=== PATIENT | female | born 1990 | race Asian ===

== ENCOUNTER 2020-08-10 08:00 | Outpatient (CLI) | payer OTHER ==
[2020-08-10 21:02] LABS: CANDIDA GROUP DNA NEGATIVE (NEGATIVE); CANDIDA KRUSEI DNA NEGATIVE (NEGATIVE); TRICHOMONAS VAGINALIS DNA NEGATIVE (NEGATIVE)
== END 2020-08-10 23:59 | disposition home or self-care (01) ==
LOC: LAB.R 08:00
PROVIDERS: ATTEND Advanced Practice Midwife
DX: N76.0 Acute vaginitis (principal)
CPT/HCPCS: 87661; 87801

== ENCOUNTER 2020-09-14 08:11 | Outpatient (CLI) | payer OTHER ==
[2020-09-14 08:24] VITALS: BP 125/78
--- NOTE | 2020-09-14 16:39 | PROCEDURE REPORT ---
- HPI Diagnosis/Indication for NST: Gestational Diabetes Current EDU 10/17/20 Gestation 35 Weeks and 2 Days 1 Para 0 Vital Signs Temperature 36.7 C 09/14/20 08:22 Heart Rate 91 09/14/20 08:22 Respiratory Rate 16 09/14/20 08:22 Blood Pressure 125/78 09/14/20 08:22 O2 Saturation 100 09/14/20 08:22 Temperature 36.7 C 09/14/20 08:22 Heart Rate 91 09/14/20 08:22 Respiratory Rate 16 09/14/20 08:22 Blood Pressure 125/78 09/14/20 08:22 O2 Saturation 100 09/14/20 08:22 - NST Procedure NST Procedure Start Date 09/14/20 Start Time 08:20 Stop Time 08:50 Vibroacoustic Stimulation Used No Patient States Movement Yes - Results and Plan Findings/Impression: Beverley presents today for scheduled NST r/t complicated by GDM She is a 30yo at 35.2 wks gestation NST perform date: 09/14/2020 NST read date: 09/14/2020 FHR 125 baseline, moderate variability, accels, no decels Interpretation: Reactive Plan: Continue with routine care Continue with scheduled NSTs Final Diagnosis: complicated by GDM
== END 2020-09-14 08:50 | disposition home or self-care (01) ==
LOC: WFO 08:11 → FBP 08:14 → WFO 08:50
PROVIDERS: ATTEND Advanced Practice Midwife
DX: O24.419 Gestational diabetes mellitus in pregnancy, unspecified control (principal); Z3A.35 35 weeks gestation of pregnancy
CPT/HCPCS: 59025

== ENCOUNTER 2020-09-17 07:03 | Outpatient (CLI) | payer OTHER ==
[2020-09-17 08:31] VITALS: BP 120/75
--- NOTE | 2020-09-17 09:39 | PROCEDURE REPORT ---
- HPI Diagnosis/Indication for NST: Gestational Diabetes Current EDU 10/17/20 Gestation 35 Weeks and 5 Days 1 Para 0 Vital Signs Temperature 36.5 C 09/17/20 08:30 Heart Rate 76 09/17/20 08:30 Respiratory Rate 16 09/17/20 08:30 Blood Pressure 120/75 09/17/20 08:30 O2 Saturation 100 09/17/20 08:30 Temperature 36.5 C 09/17/20 08:30 Heart Rate 76 09/17/20 08:30 Respiratory Rate 16 09/17/20 08:30 Blood Pressure 120/75 09/17/20 08:30 O2 Saturation 100 09/17/20 08:30 - NST Procedure NST Procedure Start Date 09/17/20 Start Time 08:06 Stop Time 08:50 Vibroacoustic Stimulation Used No Patient States Movement Yes - Results and Plan Findings/Impression: Beverley presents today for scheduled NST r/t complicated by GDM She is a 30yo at 35.5 wks gestation NST perform date: 09/17/2020 NST read date: 09/17/2020 FHR 125 baseline, moderate variability, accels, no decels Interpretation: Reactive Plan: Continue with routine care Continue with scheduled NSTs Final Diagnosis: complicated by GDM
--- NOTE | 2020-09-17 09:47 | Ultrasound Report ---
PROCEDURE: OB Biophysical Profile INDICATIONS: GESTATIONAL DIABETES OUTSIDE/PRIOR DATING DATA: Last menstrual period (LMP): Not applicable. LMP-based estimated date of delivery (SOURAV): Not applicable. First dating scan (date and location): 06/04/2020. Estimated date of delivery (SOURAV) from first dating scan: 10/17/2020. TECHNIQUE: Real-time scanning was performed of the fetus, with image documentation and biometric rashel surements. Biophysical profile was also obtained. Endovaginal scanning: Not performed COMPARISON: None. FINDINGS: General: A single living intrauterine gestation is present. Presentation: Cephalic Placenta: Placental position is anterior, without previa. Amniotic fluid index: 12.2 cm, 33rd percentile for gestational age. heart rate: 135 beats per minute. Maternal cervical canal: 4.6 cm long; normal length is 2.5 cm or more. Biophysical profile: Tone: 2 points. Movement: 2 points. Respiration: 2 points. Largest pocket of fluid: 2 points. Umbilical artery Doppler: SD ratios were obtained at the placenta (2.1 and 2.2), at the mid umbilica l artery segment (2.1 and 2.7), and at the umbilicus (2.4 and 2.9). IMPRESSION: Single live intrauterine gestation. Normal biophysical profile. GOVIND and cord Doppler SD ratios are within normal limits. Reviewed by: Zackary Perez MD on 09/17/2020 9:46 AM PDT Approved by: Zackary Perez MD on 09/17/2020 9:46 AM PDT Station ID: [id number]
== END 2020-09-17 09:00 | disposition home or self-care (01) ==
LOC: DI 07:03 → FBP 08:18 → DI 09:00
PROVIDERS: ATTEND Advanced Practice Midwife
DX: O24.419 Gestational diabetes mellitus in pregnancy, unspecified control (principal); Z3A.35 35 weeks gestation of pregnancy
CPT/HCPCS: 59025

== ENCOUNTER 2020-09-21 08:51 | Outpatient (CLI) | payer OTHER ==
[2020-09-21 09:19] VITALS: BP 125/79
--- NOTE | 2020-09-21 10:16 | PROCEDURE REPORT ---
- HPI Diagnosis/Indication for NST: Gestational Diabetes Current EDU 10/17/20 Gestation 36 Weeks and 2 Days 1 Para 0 Vital Signs Temperature 36.8 C 09/21/20 09:16 Heart Rate 90 09/21/20 09:16 Respiratory Rate 16 09/21/20 09:16 Blood Pressure 125/79 09/21/20 09:16 O2 Saturation 99 09/21/20 09:16 Temperature 36.8 C 09/21/20 09:16 Heart Rate 90 09/21/20 09:16 Respiratory Rate 16 09/21/20 09:16 Blood Pressure 125/79 09/21/20 09:16 O2 Saturation 99 09/21/20 09:16 - NST Procedure NST Procedure Start Date 09/21/20 Start Time 09:00 Stop Time 09:22 Vibroacoustic Stimulation Used No Patient States Movement Yes - Results and Plan Plan: Beverley presents today for scheduled NST secondary to gestational diabetes. She r eports she is doing well. She denies vaginal bleeding, leakage of fluid or contractions. She denies questions or concerns today. NST performed 09/21/2020 NST read 09/21/2020 NST reactive. FHR baseline 145, moderate variability, + accels, no decels No contractions appreciated via tocometry A: 30yo @ 36.2wks gestation by LMP c/w 9.5wk U/S A1GDM P: Continue twice weekly NSTs with once weekly BPPs secondary to gestational diabetes. Pt released home with precautions. She verbalized understanding and agrees to above plan. She denies further questions or concerns at this time. FINAL DIAGNOSIS: A1 Gestational Diabetes
== END 2020-09-21 09:30 | disposition home or self-care (01) ==
LOC: WFO 08:51 → FBP 08:53 → WFO 09:30
PROVIDERS: ATTEND Nurse Practitioner Obstetrics & Gynecology
DX: O24.419 Gestational diabetes mellitus in pregnancy, unspecified control (principal); Z3A.36 36 weeks gestation of pregnancy
CPT/HCPCS: 59025

== ENCOUNTER 2020-09-24 07:19 | Outpatient (CLI) | payer OTHER ==
--- NOTE | 2020-09-24 17:44 | Ultrasound Report ---
PROCEDURE: OB Biophysical Profile INDICATIONS: GESTATIONAL DIABETES TECHNIQUE: Real-time scanning was performed of the fetus, with image documentation and biometric rashel surements. Biophysical profile was also obtained. Endovaginal scanning: Not performed COMPARISON: None. FINDINGS: General: A single living intrauterine gestation is present. Presentation: Cephalic Placenta: Placental position is anterior, without previa. Amniotic fluid index: 8.5 cm, 8th percentile for gestational age. heart rate: 136 beats per minute. Maternal cervical canal: Maternal cervix not imaged. This was difficult to image secondary to cephal ic presentation and advanced gestational age. Estimated gestational age from initial scan: Approximately 36 weeks and 5 days Biophysical profile: Tone: 2 points. Movement: 2 points. Respiration: 2 points. Largest pocket of fluid: 2 points. Largest vertical pocket measured 2.7 cm. Umbilical artery Doppler: Normal cord Doppler waveforms. Normal S/D ratios for gestational age measu ring between 2.31 and 2.46. IMPRESSION: Single living intrauterine gestation with estimated gestational age of approximately 36 weeks and 5 d ays. Biophysical profile score of 8 out of 8. Four-quadrant GOVIND measures 8.5 cm which correlates with the 8th percentile based off gestational age. Normal S/D ratios and cord Doppler waveforms for gestational age. Reviewed by: Austin De Souza MD on 09/24/2020 5:43 PM PDT Approved by: Austin De Souza MD on 09/24/2020 5:43 PM PDT Station ID: [id number]
== END 2020-09-24 07:20 | disposition home or self-care (01) ==
LOC: DI 07:19
PROVIDERS: ATTEND Nurse Practitioner Obstetrics & Gynecology
DX: O24.419 Gestational diabetes mellitus in pregnancy, unspecified control (principal); Z3A.36 36 weeks gestation of pregnancy

== ENCOUNTER 2020-09-24 08:12 | Outpatient (CLI) | payer OTHER ==
[2020-09-24 08:23] VITALS: BP 119/72
--- NOTE | 2020-09-24 09:05 | PROCEDURE REPORT ---
- HPI Diagnosis/Indication for NST: Pre- Diabetes Current EDU 10/17/20 Gestation 36 Weeks and 5 Days 1 Para 0 Vital Signs Temperature 36.6 C 09/24/20 08:21 Heart Rate 74 09/24/20 08:21 Respiratory Rate 18 09/24/20 08:21 Blood Pressure 119/72 09/24/20 08:21 O2 Saturation 100 09/24/20 08:21 Temperature 36.6 C 09/24/20 08:21 Heart Rate 74 09/24/20 08:21 Respiratory Rate 18 09/24/20 08:21 Blood Pressure 119/72 09/24/20 08:21 O2 Saturation 100 09/24/20 08:21 - NST Procedure NST Procedure Start Date 09/24/20 Start Time 08:20 Stop Time 08:40 Vibroacoustic Stimulation Used No Patient States Movement Yes - Results and Plan Findings/Impression: Beverley presents today for scheduled NST r/t complicated by GDM She is a 30yo at 36.5 wks gestation NST perform date: 09/24/2020 NST read date: 09/24/2020 FHR 135 baseline, moderate variability, accels, no decels Interpretation: Reactive Plan: Continue with routine care Continue with scheduled NSTs Final Diagnosis: complicated by GDM
== END 2020-09-24 08:41 | disposition home or self-care (01) ==
LOC: WFO 08:12 → FBP 08:13 → WFO 08:41
PROVIDERS: ATTEND Nurse Practitioner Obstetrics & Gynecology
DX: O24.113 Pre-existing type 2 diabetes mellitus, in pregnancy, third trimester (principal); Z3A.36 36 weeks gestation of pregnancy
CPT/HCPCS: 59025

== ENCOUNTER 2020-09-28 09:23 | Outpatient (CLI) | payer OTHER ==
[2020-09-28 09:43] VITALS: BP 128/78
--- NOTE | 2020-09-28 11:55 | PROCEDURE REPORT ---
- HPI Diagnosis/Indication for NST: Gestational Diabetes Current EDU 10/17/20 Gestation 37 Weeks and 2 Days 1 Para 0 Vital Signs Temperature 36.6 C 09/28/20 09:40 Heart Rate 92 09/28/20 09:40 Respiratory Rate 16 09/28/20 09:40 Blood Pressure 128/78 09/28/20 09:40 O2 Saturation 100 09/28/20 09:40 Temperature 36.6 C 09/28/20 09:40 Heart Rate 92 09/28/20 09:40 Respiratory Rate 16 09/28/20 09:40 Blood Pressure 128/78 09/28/20 09:40 O2 Saturation 100 09/28/20 09:40 - NST Procedure NST Procedure Start Date 09/28/20 Start Time 09:35 Stop Time 10:04 Vibroacoustic Stimulation Used No Patient States Movement Yes - Results and Plan Findings/Impression: Beverley presents today for scheduled NST r/t complicated by GDM She is a 30yo at 37.2 wks gestation NST perform date: 09/28/2020 NST read date: 09/28/2020 FHR 130 baseline, moderate variability, accels, no decels Interpretation: Reactive Plan: Continue with routine care Continue with scheduled NSTs Final Diagnosis: complicated by GDM
== END 2020-09-28 10:10 | disposition home or self-care (01) ==
LOC: WFO 09:23 → FBP 09:27 → WFO 10:10
PROVIDERS: ATTEND Advanced Practice Midwife
DX: O24.419 Gestational diabetes mellitus in pregnancy, unspecified control (principal); Z3A.37 37 weeks gestation of pregnancy
CPT/HCPCS: 59025

== ENCOUNTER 2020-09-29 07:00 | Outpatient (CLI) | payer OTHER | END 2020-09-29 23:59 | disposition home or self-care (01) | LOC: LAB.R 07:00 | PROVIDERS: ATTEND Nurse Practitioner Obstetrics & Gynecology | DX: Z36.85 Encounter for antenatal screening for Streptococcus B (principal) | CPT/HCPCS: 87797 ==

== ENCOUNTER 2020-10-01 18:58 | Outpatient (CLI) | payer OTHER ==
[2020-10-01 19:27] VITALS: BP 124/82
--- NOTE | 2020-10-01 19:41 | PROCEDURE REPORT ---
- HPI Vital Signs Temperature 37.0 C 10/01/20 19:09 Heart Rate 95 10/01/20 19:09 Respiratory Rate 17 10/01/20 19:09 Blood Pressure 123/90 H 10/01/20 19:09 O2 Saturation 97 10/01/20 19:09 Temperature 37.0 C 10/01/20 19:09 Heart Rate 95 10/01/20 19:09 Respiratory Rate 17 10/01/20 19:09 Blood Pressure 124/82 H 10/01/20 19:27 O2 Saturation 97 10/01/20 19:09 - NST Procedure NST Procedure Start Time 09:35 Stop Time 10:04 - Results and Plan Findings/Impression: Beverley presents today for scheduled NST r/t complicated by GDM She is a 30yo at 37.5 wks gestation NST perform date: 10/01/2020 NST read date: 10/01/2020 FHR 140 baseline, moderate variability, accels, no decels Interpretation: Reactive Plan: Continue with routine care Continue with scheduled NSTs Final Diagnosis: complicated by GDM
[2020-10-01] MEDS ORDERED: LACTATED RINGERS 1,000 ML IV ONE (21:09)
== END 2020-10-01 19:40 | disposition home or self-care (01) ==
LOC: WFO 18:58 → FBP 18:59 → WFO 19:40
PROVIDERS: ATTEND Advanced Practice Midwife
DX: O24.419 Gestational diabetes mellitus in pregnancy, unspecified control (principal); Z3A.37 37 weeks gestation of pregnancy; O09.70 Supervision of high risk pregnancy due to social problems, unspecified trimester
CPT/HCPCS: 59025; 76819; J7120

== ENCOUNTER 2020-10-01 19:43 | Outpatient (CLI) | payer OTHER ==
--- NOTE | 2020-10-01 20:53 | Ultrasound Report ---
PROCEDURE: OB Biophysical Profile INDICATIONS: GESTATIONAL DIABETES OUTSIDE/PRIOR DATING DATA: Last menstrual period (LMP): Not known. LMP-based estimated date of delivery (SOURAV): Not applicable. First dating scan (date and location): Not provided. Estimated date of delivery (SOURAV) from first dating scan: 10/17/2020 as reported by provider. TECHNIQUE: Real-time scanning was performed of the fetus, with image documentation and biometric rashel surements. Biophysical profile was also obtained. Endovaginal scanning: Fall COMPARISON: None. FINDINGS: General: A single living intrauterine gestation is present. Presentation: Vertex Placenta: Placental position is anterior, without previa. Amniotic fluid index: 13.6 cm, 58% for gestational age. heart rate: 124 beats per minute. Maternal cervical canal: Not imaged. Estimated gestational age from initial scan: 37 weeks 5 days. Measurement variability in biometric dating: +/- 10 days from 12-20 weeks gestation, +/- 2 weeks from 20-30 weeks gestation, +/- 3 weeks at 30 weeks gestation or later. Biophysical profile: Tone: 2 points. Movement: 2 points. Respiration: 0 points. Largest pocket of fluid: 2 points. Umbilical artery Doppler: S/D ratio 2.2-2.6. IMPRESSION: 1. Single living intrauterine . 2. Normal amniotic fluid index. 3. Biophysical profile score 6/8 with no respiratory motion. Reviewed by: Bhumi Dunn MD, PhD on 10/01/2020 8:52 PM PDT Approved by: Bhumi Dunn MD, PhD on 10/01/2020 8:52 PM PDT Station ID: [id number]
== END 2020-10-01 19:44 | disposition home or self-care (01) ==
LOC: DI 19:43
PROVIDERS: ATTEND Nurse Practitioner Obstetrics & Gynecology
DX: O24.419 Gestational diabetes mellitus in pregnancy, unspecified control (principal); Z3A.37 37 weeks gestation of pregnancy

== ENCOUNTER 2020-10-05 08:08 | Outpatient (CLI) | payer OTHER ==
[2020-10-05 08:26] VITALS: BP 128/75
--- NOTE | 2020-10-06 16:27 | PROCEDURE REPORT ---
- HPI Diagnosis/Indication for NST: Pre- Diabetes Current EDU 10/17/20 Gestation 38 Weeks and 2 Days 1 Para 0 Vital Signs Temperature 36.6 C 10/05/20 08:25 Heart Rate 85 10/05/20 08:25 Respiratory Rate 16 10/05/20 08:25 Blood Pressure 128/75 10/05/20 08:25 O2 Saturation 100 10/05/20 08:25 Temperature 36.6 C 10/05/20 08:25 Heart Rate 85 10/05/20 08:25 Respiratory Rate 16 10/05/20 08:25 Blood Pressure 128/75 10/05/20 08:25 O2 Saturation 100 10/05/20 08:25 - NST Procedure NST Procedure Start Date 10/05/20 Start Time 08:21 Stop Time 08:50 Vibroacoustic Stimulation Used No Patient States Movement Yes - Results and Plan Plan: Beverley presents today for scheduled NST r/t complicated by GDM She is a 30yo at 38.2 wks gestation NST perform date: 10/05/2020 NST read date: 10/25/2020 FHR 140 baseline, moderate variability, accels, no decels Interpretation: Reactive Plan: Continue with routine care Continue with scheduled NSTs Final Diagnosis: complicated by GDM
== END 2020-10-05 08:50 | disposition home or self-care (01) ==
LOC: WFO 08:08 → FBP 08:12 → WFO 08:50
PROVIDERS: ATTEND Nurse Practitioner Obstetrics & Gynecology
DX: O24.313 Unspecified pre-existing diabetes mellitus in pregnancy, third trimester (principal); Z3A.38 38 weeks gestation of pregnancy
CPT/HCPCS: 59025

== ENCOUNTER 2020-10-08 07:26 | Outpatient (CLI) | payer OTHER ==
--- NOTE | 2020-10-08 16:48 | Ultrasound Report ---
PROCEDURE: OB Biophysical Profile INDICATIONS: GESTATIONAL DIABETES OUTSIDE/PRIOR DATING DATA: First dating scan (date and location): Unknown. Estimated date of delivery (SOURAV) from first dating scan: 10/17/2020 (date provided by the patient's pr ovider) TECHNIQUE: Real-time scanning was performed of the fetus, with image documentation and biometric rashel surements. Biophysical profile was also obtained. Endovaginal scanning: Not performed COMPARISON: 10/01/2020. FINDINGS: General: A single living intrauterine gestation is present. Presentation: Vertex Placenta: Placental position is anterior, without previa. Amniotic fluid index: 14.3 cm, 59th percentile for gestational age. heart rate: 136 beats per minute. Maternal cervical canal: Maternal cervix appears visibly long and closed Estimated gestational age : 38 weeks and 5 days Biophysical profile: Tone: 2 points. Movement: 2 points. Respiration: 2 points. Largest pocket of fluid: 2 points. (Largest pocket measured 5.5 cm) Umbilical artery Doppler: S/D ratios measure 2.2 at the placenta, 2.2 at mid cord, and 2.[address] insertion. Normal cord Doppler waveforms. IMPRESSION: 1. Single living intrauterine gestation with estimated gestational age of approximately 38 weeks and 5 days. 2. Biophysical profile score of 8 out of 8. Largest vertical pocket measured 5.5 cm. 3. Normal S/D ratios for gestational age with normal cord Doppler waveforms. Reviewed by: Austin De Souza MD on 10/08/2020 4:46 PM PDT Approved by: Austin De Souza MD on 10/08/2020 4:46 PM PDT Station ID: [id number]
== END 2020-10-08 07:27 | disposition home or self-care (01) ==
LOC: DI 07:26
PROVIDERS: ATTEND Nurse Practitioner Obstetrics & Gynecology
DX: O24.419 Gestational diabetes mellitus in pregnancy, unspecified control (principal); Z3A.38 38 weeks gestation of pregnancy

== ENCOUNTER 2020-10-08 07:53 | Outpatient (CLI) | payer OTHER ==
[2020-10-08 08:02] VITALS: BP 130/81
--- NOTE | 2020-10-08 09:56 | PROCEDURE REPORT ---
- HPI Diagnosis/Indication for NST: Gestational Diabetes Current EDU 10/17/20 Gestation 38 Weeks and 5 Days 1 Para 0 Vital Signs Temperature 36.7 C 10/08/20 08:01 Heart Rate 85 10/08/20 08:01 Respiratory Rate 18 10/08/20 08:01 Blood Pressure 130/81 H 10/08/20 08:01 Temperature 36.7 C 10/08/20 08:01 Heart Rate 85 10/08/20 08:01 Respiratory Rate 18 10/08/20 08:01 Blood Pressure 130/81 H 10/08/20 08:01 O2 Saturation - NST Procedure NST Procedure Start Date 10/08/20 Start Time 08:00 Stop Time 08:25 Patient States Movement Yes - Results and Plan Plan: Beverley presents today for scheduled NST r/t complicated by GDM She is a 30yo at 38.5 wks gestation NST perform date: 10/08/2020 NST read date: 10/08/2020 FHR 140 baseline, moderate variability, accels, no decels Interpretation: Reactive Plan: Continue with routine care IOL secondary to gestational diabetes scheduled in 2 days. Final Diagnosis: complicated by GDM
== END 2020-10-08 08:30 | disposition home or self-care (01) ==
LOC: WFO 07:53 → FBP 07:56 → WFO 08:30
PROVIDERS: ATTEND Nurse Practitioner Obstetrics & Gynecology
DX: O24.419 Gestational diabetes mellitus in pregnancy, unspecified control (principal); Z3A.38 38 weeks gestation of pregnancy; O09.70 Supervision of high risk pregnancy due to social problems, unspecified trimester
CPT/HCPCS: 59025

== ENCOUNTER 2020-10-10 07:25 | Inpatient (IN) | payer OTHER ==
[2020-10-10] MEDS ORDERED: OXYTOCIN/SODIUM CHLORIDE 500 ML IV PRN (07:48)
[2020-10-10] MEDS ORDERED: CARBOPROST TROMETHAMINE 250 MCG/ML AMP IM PRN (07:48)
[2020-10-10] MEDS ORDERED: METHYLERGONOVINE 0.2 MG/ML VIAL IM PRN (07:48)
[2020-10-10] MEDS ORDERED: OXYTOCIN 10 UNIT/ML VIAL IM PRN (07:48)
[2020-10-10] MEDS ORDERED: ONDANSETRON 4 MG/2 ML VIAL IVP PRN ×2 (07:48→19:41)
[2020-10-10] MEDS ORDERED: LIDOCAINE-MPF 1% 30 ML VIAL ID PRN (07:48)
[2020-10-10] MEDS ORDERED: TRANEXAMIC ACID IN NACL 1,000 MG/100 ML BAG IV PRN (07:48)
[2020-10-10] MEDS ORDERED: miSOPROStoL 200 MCG TABLET BC PRN (07:48)
[2020-10-10] MEDS ORDERED: SODIUM CHLORIDE FLUSH 0.9% 10 ML SYRINGE IVP PRN (07:48)
[2020-10-10] MEDS ORDERED: LACTATED RINGERS 1,000 ML IV SCH ×2 (08:00→23:00)
[2020-10-10] MEDS ORDERED: SODIUM CHLORIDE FLUSH 0.9% 10 ML SYRINGE IVP SCH (09:00)
[2020-10-10] MEDS: miSOPROStoL 100 MCG TABLET BC SCH ×2 (09:08→13:11)
[2020-10-10 09:59] LABS: BASOPHILS % (AUTO) 0.3 %; EOSINOPHILS # (AUTO) 0.1 10^3/uL (0.0-0.7); EOSINOPHILS % (AUTO) 0.7 %; HCT - HEMATOCRIT 37.9 % (37.0-47.0); HGB - HEMOGLOBIN 12.9 g/dL (12.0-16.0); LYMPHOCYTES # (AUTO) 1.6 10^3/uL (1.5-3.5); LYMPHOCYTES % (AUTO) 17.8 %; MEAN CORPUSCULAR HEMOGLOBIN 28.5 pg (27.0-31.0); MEAN CORPUSCULAR VOLUME 83.8 fL (81.0-99.0); MEAN PLATELET VOLUME 10.9 fL (7.9-10.8); MONOCYTES # (AUTO) 0.9 10^3/uL (0.0-1.0); MONOCYTES % (AUTO) 9.5 %; NEUTROPHILS # (AUTO) 6.3 10^3/uL (1.5-6.6); NEUTROPHILS % (AUTO) 70.2 %; PLT - PLATELET COUNT 278 10^3/uL (130-450); RED BLOOD COUNT 4.52 10^6/uL (4.20-5.40); RED CELL DISTRIBUTION WIDTH 13.1 % (12.0-15.0)
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
[2020-10-10] MEDS ORDERED: AMPICILLIN 2 GM in SODIUM CHLORIDE 0.9% MINIBAG 100 ML IV ONE (16:00)
--- NOTE | 2020-10-10 16:50 | PROVIDER PROGRESS NOTE ---
Labor Progress Note - Uterine Monitoring Uterine Monitoring Mode: positive: External toco Contraction Frequency (min/apart): 1.5-2 Contraction Intensity: positive: Moderate Uterine Resting Tone: positive: Soft - Monitoring Monitor Mode: positive: External ultrasound Heart Rate Baseline: 135 Accelerations: positive: Present, 15x15 Decelerations: positive: None Strip Review: positive: Category I - Vaginal Exam Dilation (in cm): 4 Effacement (%): 90 Station: -2 Cervical Position: Posterior - Labor Progress Note Labor Progress Note/Additional Text: S: Feeling more discomfort with contractions but denies feeling what she would describe as pain. [place] a pop and experienced leakage of clear fluid vaginally. She desires to see how far she can go without an epidural but also feels comfortable getting an epidural. States she wants to "go with the flow". She is feeling nervous about the unexpected but also excited. Her father is supportive at the bedside. O: FHR baseline 135, moderate variability, + accels, no decels Contractions palpate moderate every 1.5-2 minutes with soft resting tone SVE 4/90/-2, posterior. Vertex. S/p 2 doses of 50mcg BC misoprostol for effective cervical ripening S/p 1 loading dose of 2mg Ampicillin for GBS prophylaxis per protocol - first dose administered immediately following SROM A: 30yo @ 39.0wks gestation A1GDM SROM x 1 hr - clear fluid FHR Category I P: D/c misoprostol Expectant management x 4 hours, then repeat SVE. If SVE advancing in dilation will continue expectant management. If SVE unchanged, will initiate pitocin for labor augmentation. Continuous monitoring. Encouraged ambulation and position changes. Jacuzzi PRN. Nitrous oxide PRN. Epidural per maternal request. Anticipate . Pt verbalized understanding and agrees to above plan. She denies further questions or concerns at this time.
[2020-10-10] MEDS ORDERED: ROPIVACAINE 0.2% 200 MG/100 ML BAG EP ONE (19:02)
[2020-10-10] MEDS ORDERED: diphenhydrAMINE INJ 50 MG/ML VIAL IVP PRN (19:41)
[2020-10-10] MEDS ORDERED: NALOXONE 0.4 MG/ML VIAL IVP PRN (19:41)
[2020-10-10] MEDS ORDERED: ROPIVACAINE 0.2% 200 MG/100 ML BAG EP PRN (19:41)
[2020-10-10] MEDS ORDERED: ePHEDrine 50 MG/ML VIAL IVP PRN (19:41)
[2020-10-10] MEDS ORDERED: METOCLOPRAMIDE 10 MG/2 ML VIAL IVP PRN (19:41)
[2020-10-10] MEDS ORDERED: NALBUPHINE 10 MG/ML AMP IVP PRN (19:41)
--- NOTE | 2020-10-10 19:44 | ANESTHESIA ---
Pre-Anesthesia VS, & Labs - Diagnosis labor - Procedure labor epidural Vital Signs: Temp Pulse Resp BP Pulse Ox 36.8 C 87 20 118/80 10/10/20 07:39 10/10/20 07:39 10/10/20 07:39 10/10/20 07:39 Height: 5 ft 1 in Weight (kg): 69.581 kg Body Mass Index: 29.0 BMI Classification: Overweight - NPO >8 hours - Is Patient ?: Yes - Lab Results Current Lab Results: Laboratory Tests 10/10/20 10:53: Blood Type Recheck O POSITIVE 10/10/20 09:26: WBC 9.0, RBC 4.52, Hgb 12.9, Hct 37.9, MCV 83.8, MCH 28.5, MCHC 34.0, RDW 13.1, Plt Count 278, MPV 10.9 H, Neut # (Auto) 6.3, Lymph # (Auto) 1.6, [place] # (Auto) 0.9, Eos # (Auto) 0.1, Baso # (Auto) 0.0, Absolute Nucleated RBC 0.00, Nucleated RBC % 0.0 10/10/20 09:26: Blood Type O POSITIVE, Antibody Screen NEGATIVE Fish Bones: 10/10/20 09:26 Home Medications and Allergies Active Medications Carboprost Tromethamine (Carboprost Tromethamine 250 Mcg/Ml Amp) 250 mcg IM Q15M PRN PRN Reason: Step 4: Hemorrhage protocol Stop: 10/15/20 07:50 Oxytocin/Sodium Chloride (Pitocin/Sodium Chloride) 500 mls @ 999 mls/hr IV PRN PRN; Protocol PRN Reason: POST- HEMORR PREVENTION Stop: 10/15/20 07:50 Tranexamic Acid (Tranexamic 1,000 Mg/100ml-Nacl) 1,000 mg in 100 mls @ 600 mls /hr IV .ONCE PRN PRN Reason: EBL >1200mL and within 3hr Stop: 10/15/20 07:50 Lactated Ringer's (Lr) 1,000 mls @ 100 mls/hr IV .Q10H RAULITO Last Infusion: 10/10/20 19:17 Dose: 500 mls/hr Documented by: Ampicillin Sodium 1 gm/ Sodium (Chloride) 100 mls @ 200 mls/hr IV Q4H RAULITO Lidocaine HCl (Lidocaine-Mpf 1% 30 Ml Vial) 30 ml ID .ONCE PRN PRN Reason: PERINEAL REPAIR Stop: 10/15/20 07:50 Methylergonovine Maleate (Methylergonovine 0.2 Mg/Ml Vial) 0.2 mg IM .ONCE PRN PRN Reason: Step 2: Hemorrhage protocol Stop: 10/15/20 07:50 Misoprostol (Misoprostol 200 Mcg Tablet) 800 mcg BC .ONCE PRN PRN Reason: Step 3: Hemorrhage protocol Stop: 10/15/20 07:50 Misoprostol (Misoprostol 100 Mcg Tablet) 50 mcg BC Q4HR RAULITO Last Admin: 10/10/20 13:11 Dose: 50 mcg Documented by: Ondansetron HCl (Ondansetron 4 Mg/2 Ml Vial) 4 mg IVP Q4HR PRN PRN Reason: Nausea / Vomiting Oxytocin (Oxytocin 10 Unit/Ml Vial) 10 unit IM .ONCE PRN PRN Reason: Step one: If no IV access Stop: 10/15/20 07:50 Sodium Chloride (Sodium Chloride Flush 0.9% 10 Ml Syringe) 10 ml IVP 0100,0900,1700 RAULITO Sodium Chloride (Sodium Chloride Flush 0.9% 10 Ml Syringe) 10 ml IVP PRN PRN PRN Reason: NEEDED PER PROVIDER ORDERS Allergies/Adverse Reactions: Allergies Allergy/AdvReac Type Severity Reaction Status Date / Time shellfish derived Allergy Itching Verified 10/10/20 09:05 strawberry Allergy Edema Verified 10/10/20 09:05 Anes History & Medical History - Anesthetic History Anesthesia Complications: reports: No previous complications - Medical History Cardiovascular: reports: None Pulmonary: reports: None Smoking Status: Never smoker History of Cancer?: No - Obstetrical History : 1 Parity: 0 Events: reports: None Complications: reports: Gestational diabetes Exam General: Alert, Oriented x3, Mild distress Dental: WNL Mouth Opening: Greater than 4 Fingerbreadths Neck Mobility: Normal Mallampati classification: II Thyromental Distance: greater than 6 cm Plan Anesthesia Type: Epidural Consent for Procedure(s) Verified and Reviewed: Yes Code Status: Attempt Resuscitation ASA classification: 2-Mild systemic disease Is this case an emergency?: No
[2020-10-10] MEDS ORDERED: AMPICILLIN 1 GM in SODIUM CHLORIDE 0.9% MINIBAG 100 ML IV SCH (20:00)
[2020-10-10] MEDS ORDERED: HYDROCORTISONE 1% CREAM 28 GM TUBE PR PRN (22:40)
[2020-10-10] MEDS ORDERED: WITCH HAZEL/GLYCERIN 1 PAD TOP PRN (22:40)
--- NOTE | 2020-10-10 22:40 | DELIVERY NOTE ---
Delivery Note - Labor Labor: positive: Other - Infant Delivery Method Delivery Method: positive: Spontaneous vaginal delivery - Cervical Ripening Method Cervical Ripening Method: positive: Misoprostil - Presentation Presentation: positive: Vertex, TRA - right occiput anterior - Nuchal Cord Nuchal Cord: positive: None, Present, Reduced - Amniotic Fluid Description Amniotic Fluid Description: positive: Clear - Episiotomy Type Episiotomy Type: positive: None - Laceration Laceration: positive: 2nd degree, Vaginal - Suture Suture Type: positive: Vicryl Suture Size: positive: 2-0 - Delivery Outcome Delivery Outcome: positive: Livebirth - [place] : positive: Placed in direct skin contact with mother, Stimulated, Warmed, [place] used sex: positive: Male - Cord Cord: positive: 3 vessels - Placenta Placenta: positive: Intact, Spontaneous - Estimated Blood Loss Estimated Blood Loss (in cc): 250 - Post Delivery Events Post Delivery Events: positive: No post delivery events - Delivery Comments (Free Text/Narrative) Delivery Comments (Free Text/Narrative): Labor: This 30yo @ 39.0wks gestation by 9.5wk U/S presented to [facility] on 10/10/2020 @ 0730 for medication induction of labor secondary to A1 gestational diabetes. SVE was deferred initially secondary to no contractions appreciated by the patient. FHR pattern demonstrated Category I pattern throughout labor. She received 2 doses of 50mcg BC misoprostol for pre-induction cervical ripening. SROM occurred at 1534 and was noted to be a moderate amount of clear fluid. SVE at that time was 4/90/-2 and patient was expectantly managed through the duration of her labor course. She received an epidural for pain management per her request. She also received 4 doses of Ampicillin for GBS prophylaxis per protocol. Pt progressed to c/c/+1 at 2037. She began actively pushing at 2109. : Normal of a viable male on 10/10/2020 @ 2152. Nuchal cord x 1 reduced. The was placed on maternal abdomen, stimulated, dried, and placed skin to skin. 's were 8/9 at 1 and 5 min respectively. The umbilical cord was allowed to stop pulsating at which time it was doubly clamped by CNM and cut by the patient. 3VC. Cord blood was obtained. Fundal massage and gentle cord traction applied for active management of the third stage. Placenta delivered spontaneously and intact at 2155. Pitocin administered via IV for hemostasis. EBL 250mL. Fourth Stage: Uterine fundus firm and there is no excessive bleeding. The perineum, vagina, and cervix were inspected and found to have first degree vaginal laceration which was repaired using a 2-[address]-1 needle, in standard fashion under sterile conditions. Vaginal and rectal examination following repair was completed. Tissues well approximated. Family bonding well. Both mother and baby were left in stable condition.
[2020-10-10] MEDS ORDERED: ACETAMINOPHEN 500 MG TABLET PO SCH (23:00)
[2020-10-11] MEDS: IBUPROFEN 800 MG TABLET PO SCH ×4 (00:03→22:48)
[2020-10-11] MEDS: ACETAMINOPHEN 500 MG TABLET PO SCH ×3 (04:07→23:06)
[2020-10-11] MEDS: DOCUSATE SODIUM 100 MG CAPSULE PO SCH ×2 (08:57→20:51)
--- NOTE | 2020-10-11 10:13 | PROVIDER PROGRESS NOTE ---
Subjective - Subjective Subjective: PPD#1 S: Bonding well with baby - states she is "just so in love with him". Breastf eeding with little difficulty. Reports moderate discomfort with some nursing session. Denies cracking or bleeding nipples. Feels the discomfort resolves with some feedings but others it continues throughout. She states she does not feel confident in her ability to break the baby's latch because she is worried about hurting him. Feels his suck is very strong "like a vacuum". Urinating without difficulty. Pain well controlled with oral medications. Bleeding decreased and is light. Father supportive at the bedside. Her mom planned to be arrive in 1 week but just found out that her uncle yesterday may have to change her plans. She will come at some point but it may be delayed. Pt doing well with this news and states she cannot help but think of his passing in some spiritual way as her uncle's passing and her baby's were on the same day. O: BP 116/65, HR 65, T 36.7, R 16 Heart RRR w/o M/G/R, lungs CTAB, abdomen soft and nontender, fundus firm at U, perineum intact, light lochia rubra, bilateral LE's trace edema A: 30yo -->P1 PPD#1 s/p TSVD viable male 2nd degree laceration - intact P: Continue routine pp care and medications. Working with RN on today and encouraged pt to ask questions. Evaluate for discharge home tomorrow. Pt verbalized understanding and agrees to above plan. She denies further questions or concerns at this time. Objective - Vital Signs/Intake & Output Vital Signs: Vital Signs x48h Temp Pulse Resp BP Pulse Ox 10/11/20 08:00 36.7 C 65 16 116/65 100 10/11/20 05:30 36.5 C 78 17 106/65 Intake & Output: Intake & Output 10/08/20 10/09/20 10/10/20 10/11/20 23:59 23:59 23:59 23:59 Intake Total 1570.000 320 Output Total 300 1550 Balance 1270.000 -1230 - Lab Results Fish Bones: 10/10/20 09:26 Other Labs: Lab Results x24hrs 10/10/20 10/10/20 10/10/20 Range/Units 10:53 09:26 09:26 WBC 9.0 (4.8-10.8) x10^3/uL RBC 4.52 (4.20-5.40) 10^6/uL Hgb 12.9 (12.0-16.0) g/dL Hct 37.9 (37.0-47.0) % MCV 83.8 (81.0-99.0) fL MCH 28.5 (27.0-31.0) pg MCHC 34.0 (32.0-36.0) g/dL RDW 13.1 (12.0-15.0) % Plt Count 278 (130-450) 10^3/uL MPV 10.9 H (7.9-10.8) fL Neut # (Auto) 6.3 (1.5-6.6) 10^3/uL Lymph # (Auto) 1.6 (1.5-3.5) 10^3/uL [place] # (Auto) 0.9 (0.0-1.0) 10^3/uL Eos # (Auto) 0.1 (0.0-0.7) 10^3/uL Baso # (Auto) 0.0 (0.0-0.1) 10^3/uL Absolute Nucleated RBC 0.00 x10^3/uL Nucleated RBC % 0.0 /100WBC Blood Type O POSITIVE Blood Type Recheck O POSITIVE Antibody Screen NEGATIVE
[2020-10-12] MEDS: IBUPROFEN 800 MG TABLET PO SCH ×2 (04:59→07:19)
[2020-10-12] MEDS: DOCUSATE SODIUM 100 MG CAPSULE PO SCH (07:19)
[2020-10-12 08:09] VITALS: BP 107/64
[2020-10-12] MEDS: ACETAMINOPHEN 500 MG TABLET PO SCH (10:54)
--- NOTE | 2020-10-12 11:30 | DISCHARGE SUMMARY ---
Discharge Summary Discharge Date: 10/12/20 Condition at Discharge: Good Discharge Disposition: 01 Home, Self Care - HPI History of Present Illness: Admit Date 10/10/2020 Discharge Date 10/12/2020 Diagnosis on Admission: 1. A 30yo at 39.0 week intrauterine 2. A1GDM 3. GBS positive Diagnosis on Discharge 1. A 30yo s/p spontaneous vaginal delivery on 10/10/2020 2. Normal recovery 3. Adequate GBS coverage Brief History: She is a patient at [facility] who presented on 10/10/2020 for IOl r/t GDM. The patient was found to contract every 2 to 5 minutes and her cervical exam was deferred. Misoprostol was used to ripen her cervix. She spontaneously delivered a viable male infant named Magalys. Apgars were 8 and 9- and 1 and 5 minutes respectively. EBL 250mL. The patient has a 1st degree laceration that was repaired with 2-0 vicryl in usual fashion under sterile conditions. She has been doing well in her course. She is ambulating and tolerating a regular diet. She is urinating without difficulty and her lochia is normal. Her pain is well controlled with oral medications. She will be discharged home today on day #2 without need for prescriptions. She intends to follow up with Midwifery at [facility] in 1, and 6 weeks for routine visit. She has been given precautions to call if she has any worsening fevers, chills, abdominal pain, increased bleeding or foul smelling vaginal lochia. - ALLERGIES Allergies/Adverse Reactions: Allergies Allergy/AdvReac Type Severity Reaction Status Date / Time shellfish derived Allergy Itching Verified 10/10/20 09:05 strawberry Allergy Edema Verified 10/10/20 09:05 - LABS Result Diagrams: 10/10/20 09:26
--- NOTE | 2020-10-12 11:30 | PROVIDER PROGRESS NOTE ---
Subjective - Prog Note Date Prog Note Date: 10/12/20 Prog Note Time: 08:30 - Subjective Pt reports feeling: Improved Subjective: S: Beverley is baby Magalys in bed. She reports ease of and is excited to learn different positions. Her father is supportive at bedside. She reports her bleeding has decreased significantly and her pain is well controlled with NSAIDs O: Lochia rubra-light Fundus firm A: 30yo s/p on pp day 2 well Normal recovery P: Continue with routine care Discharge home today Objective - Vital Signs/Intake & Output Vital Signs: Vital Signs x48h Temp Pulse Pulse Resp BP Pulse Ox 10/12/20 07:30 36.5 C 69 16 107/64 100 10/12/20 04:50 36.6 C 69 16 115/64 100 Intake & Output: Intake & Output 10/09/20 10/10/20 10/11/20 10/12/20 23:59 23:59 23:59 23:59 Intake Total 1570.000 320 Output Total 300 1550 Balance 1270.000 -1230 - Lab Results Fish Bones: 10/10/20 09:26 Other Labs: Lab Results x24hrs 10/10/20 Range/Units 23:34 Coronavirus (PCR) NEGATIVE
--- NOTE | 2020-10-12 11:32 | Discharge Plan ---
Discharge Plan Problem Reviewed?: Yes Disposition: Home, Self Care Condition: Good Diet: Regular Activity Restrictions: No Restrictions Shower Restrictions: No Driving Restrictions: No Weight Bearing: Full Weight Additional Instructions or Follow Up instructions: Follow up with Midwifery at 1 and 6 weeks No Smoking: If you smoke, Please STOP! Call for help. Follow-up with: Jillian Hectro ARNP [Provider Admit Priv/Credential] -
--- NOTE | 2020-10-12 15:12 | Labor Flowsheet ---
Labor Flowsheet Datetime Report Generated by CPN: 10/12/2020 15:12 Datetime: 10/12/2020 07:22 VITAL SIGNS NBP Sys/Dianne/Mean (mmHg): 107 : 64 : 74 Pulse: 65 Datetime: 10/11/2020 08:44 SpO2 (%): 100 Datetime: 10/11/2020 00:15 Stage of : Datetime: 10/10/2020 23:45 Respirations: 19 Pain Presence: None/Denies Datetime: 10/10/2020 22:30 PAIN Pain Scale: 1 Pain Type: Cramping Datetime: 10/10/2020 22:18 Patient Care Comments: repair complete Datetime: 10/10/2020 22:15 LaborFlag: Labor Datetime: 10/10/2020 21:41 Pushing Position: Pushing Left Side Pushing Progress: Pushing Effectively with Contractions Datetime: 10/10/2020 21:32 I/O Interventions: Clear Liquids Given Datetime: 10/10/2020 21:26 Hygiene: Sherie Care Datetime: 10/10/2020 21:17 Temperature (C): 36.8 Datetime: 10/10/2020 21:10 STAGE 2 Pushing: Coached on Pushing Datetime: 10/10/2020 21:04 Teaching Comments: CNM discussing poc with pt Datetime: 10/10/2020 21:03 Provider Reviewed Strip: Yes COMMUNICATION Communication: Provider at Bedside Datetime: 10/10/2020 20:49 Provider Notified (Name): Jeimy CNM Notification Reason: Status Update; Labor Status Communication Comments: CNM states she will come in to hospital now Datetime: 10/10/2020 20:47 TEACHING Instructional Method: Verbal; Verbalized Understanding Plan of Care: Plan of Care Discussed; Vaginal Delivery Labor/Induction: Interventions; Pushing Methods Pain Management: Comfort Measures Datetime: 10/10/2020 20:45 Anesthesia Level Check: T9 Datetime: 10/10/2020 20:43 Patient Position/Activity: Left Tilt; Semi-Fowlers Datetime: 10/10/2020 20:40 Stage 2 Comments: test push, some descent noted Datetime: 10/10/2020 20:38 VAGINAL EXAM Dilatation (cm): 10.0 Effacement (%): 100 Station: 1 Exam by: Sarai Whiteside RN Vaginal Bleeding: Normal Show Datetime: 10/10/2020 20:30 UTERINE ACTIVITY Monitor Mode: External Frequency (min): 1.5-3 Quality: Strong Duration (sec): 50-80 Pattern: Normal: <= 5 Contractions in 10 Minutes Resting Tone (Palpate): Relaxed ASSESSMENT A Monitor Mode: External US FHR Baseline Rate : 140 Variability: Moderate 6-25 bpm Accelerations: 15X15 Decelerations: Early Category: Category I Datetime: 10/10/2020 20:00 FHR Baseline Changes: No Baseline Change MEDICATIONS Antibiotics: Ampicillin IV 1 Gm Datetime: 10/10/2020 19:59 Pain Coping: Sleeping Datetime: 10/10/2020 19:33 Epidural Procedure: Completed Epidural Procedure Other: Pump Started Datetime: 10/10/2020 19:26 MATERNAL ASSESSMENT Level of Consciousness: Alert Headache: Denies Nausea/Vomiting: Denies RUQ Epigastric Pain: Denies Datetime: 10/10/2020 19:25 Pain Location: Abdomen Pain Relief Measures: Epidural Given Datetime: 10/10/2020 19:11 Monitor Interventions for FHR: Ultrasound Adjusted Datetime: 10/10/2020 19:05 PROCEDURE TIME OUT Procedure Verify: Correct Patient Identity; Accurate Procedure Consent Form; Agreement on Procedure to be Done ANESTHESIA Anesthesia Plans: Epidural Epidural Positioning: Sitting Anesthesia Comments: MANAGER FINANCIAL @ bedside Datetime: 10/10/2020 19:00 Comments: Pt off monitoring while in jacuzzi tub per provider order from [id number]. Unable to deter mine baseline. Datetime: 10/10/2020 18:40 Pain Assessment Comments: Pt requesting epidural Datetime: 10/10/2020 17:30 Comfort Measures: Breathing/Relaxation Datetime: 10/10/2020 17:15 Medication Comments: Amp 2g infused PATIENT CARE IV/Blood Work: IV Saline Locked Datetime: 10/10/2020 17:11 Temperature Route: Oral Datetime: 10/10/2020 16:25 Cervix, Consistency: Soft Cervix, Position: Posterior Datetime: 10/10/2020 15:34 Membrane Status: Ruptured Membranes Rupture Method: Spontaneous Amniotic Fluid Color: Clear Amniotic Fluid Amount: Moderate Amniotic Fluid Odor: Normal Datetime: 10/10/2020 14:40 Monitor Interventions for UA: Mutual Adjusted Datetime: 10/10/2020 09:08 Cervical Ripening Agents: Cytotec @ Datetime: 10/10/2020 08:24 Vital Sign Comments: Admission VS done @ 0742: T - 36.8, RR 20, HR 87, SpO2 100%, BP 118/80
== END 2020-10-12 14:50 | disposition home or self-care (01) | DRG 806 ==
LOC: WFO 07:25 → FBP 07:34 → WFO 07:47 → FBP 07:48 → OBSVTOIN 15:47
PROVIDERS: ADMIT Nurse Practitioner Obstetrics & Gynecology; ATTEND Advanced Practice Midwife
PROC: 3E0DXGC Introduction of Other Therapeutic Substance into Mouth and Pharynx, External Approach (ICD-10-PCS; principal; 2020-10-10)
PROC: 10E0XZZ Delivery of Products of Conception, External Approach (ICD-10-PCS; 2020-10-10)
PROC: 0HQ9XZZ Repair Perineum Skin, External Approach (ICD-10-PCS; 2020-10-10)
DX: O24.420 Gestational diabetes mellitus in childbirth, diet controlled (principal); O71.4 Obstetric high vaginal laceration alone; Z37.0 Single live birth; O99.824 Streptococcus B carrier state complicating childbirth; O69.81X0 Labor and delivery complicated by cord around neck, without compression, not applicable or unspecified; Z3A.39 39 weeks gestation of pregnancy; Z20.822 Contact with and (suspected) exposure to COVID-19
CPT/HCPCS: 85025; 86850; 86900; 86901; 87635; A9270; J2210; J7120

== ENCOUNTER 2020-10-13 14:26 | Outpatient (CLI) | payer OTHER ==
--- NOTE | 2020-10-13 16:25 | Labor Flowsheet ---
Labor Flowsheet Datetime Report Generated by CPN: 10/13/2020 16:25 Datetime: 10/12/2020 07:22 VITAL SIGNS NBP Sys/Dianne/Mean (mmHg): 107 : 64 : 74 Pulse: 65 Datetime: 10/11/2020 08:44 SpO2 (%): 100 Datetime: 10/11/2020 00:15 Stage of : Datetime: 10/10/2020 23:45 Respirations: 19 Pain Presence: None/Denies Datetime: 10/10/2020 22:30 PAIN Pain Scale: 1 Pain Type: Cramping Datetime: 10/10/2020 22:18 Patient Care Comments: repair complete Datetime: 10/10/2020 22:15 LaborFlag: Labor Datetime: 10/10/2020 21:41 Pushing Position: Pushing Left Side Pushing Progress: Pushing Effectively with Contractions Datetime: 10/10/2020 21:32 I/O Interventions: Clear Liquids Given Datetime: 10/10/2020 21:26 Hygiene: Sherie Care Datetime: 10/10/2020 21:17 Temperature (C): 36.8 Datetime: 10/10/2020 21:10 STAGE 2 Pushing: Coached on Pushing Datetime: 10/10/2020 21:04 Teaching Comments: CNM discussing poc with pt Datetime: 10/10/2020 21:03 Provider Reviewed Strip: Yes COMMUNICATION Communication: Provider at Bedside Datetime: 10/10/2020 20:49 Provider Notified (Name): Jeimy CNM Notification Reason: Status Update; Labor Status Communication Comments: CNM states she will come in to hospital now Datetime: 10/10/2020 20:47 TEACHING Instructional Method: Verbal; Verbalized Understanding Plan of Care: Plan of Care Discussed; Vaginal Delivery Labor/Induction: Interventions; Pushing Methods Pain Management: Comfort Measures Datetime: 10/10/2020 20:45 Anesthesia Level Check: T9 Datetime: 10/10/2020 20:43 Patient Position/Activity: Left Tilt; Semi-Fowlers Datetime: 10/10/2020 20:40 Stage 2 Comments: test push, some descent noted Datetime: 10/10/2020 20:38 VAGINAL EXAM Dilatation (cm): 10.0 Effacement (%): 100 Station: 1 Exam by: Sarai Whiteside RN Vaginal Bleeding: Normal Show Datetime: 10/10/2020 20:30 UTERINE ACTIVITY Monitor Mode: External Frequency (min): 1.5-3 Quality: Strong Duration (sec): 50-80 Pattern: Normal: <= 5 Contractions in 10 Minutes Resting Tone (Palpate): Relaxed ASSESSMENT A Monitor Mode: External US FHR Baseline Rate : 140 Variability: Moderate 6-25 bpm Accelerations: 15X15 Decelerations: Early Category: Category I Datetime: 10/10/2020 20:00 FHR Baseline Changes: No Baseline Change MEDICATIONS Antibiotics: Ampicillin IV 1 Gm Datetime: 10/10/2020 19:59 Pain Coping: Sleeping Datetime: 10/10/2020 19:33 Epidural Procedure: Completed Epidural Procedure Other: Pump Started Datetime: 10/10/2020 19:26 MATERNAL ASSESSMENT Level of Consciousness: Alert Headache: Denies Nausea/Vomiting: Denies RUQ Epigastric Pain: Denies Datetime: 10/10/2020 19:25 Pain Location: Abdomen Pain Relief Measures: Epidural Given Datetime: 10/10/2020 19:11 Monitor Interventions for FHR: Ultrasound Adjusted Datetime: 10/10/2020 19:05 PROCEDURE TIME OUT Procedure Verify: Correct Patient Identity; Accurate Procedure Consent Form; Agreement on Procedure to be Done ANESTHESIA Anesthesia Plans: Epidural Epidural Positioning: Sitting Anesthesia Comments: TREATER @ bedside Datetime: 10/10/2020 19:00 Comments: Pt off monitoring while in jacuzzi tub per provider order from [id number]. Unable to deter mine baseline. Datetime: 10/10/2020 18:40 Pain Assessment Comments: Pt requesting epidural Datetime: 10/10/2020 17:30 Comfort Measures: Breathing/Relaxation Datetime: 10/10/2020 17:15 Medication Comments: Amp 2g infused PATIENT CARE IV/Blood Work: IV Saline Locked Datetime: 10/10/2020 17:11 Temperature Route: Oral Datetime: 10/10/2020 16:25 Cervix, Consistency: Soft Cervix, Position: Posterior Datetime: 10/10/2020 15:34 Membrane Status: Ruptured Membranes Rupture Method: Spontaneous Amniotic Fluid Color: Clear Amniotic Fluid Amount: Moderate Amniotic Fluid Odor: Normal Datetime: 10/10/2020 14:40 Monitor Interventions for UA: [place] Adjusted Datetime: 10/10/2020 09:08 Cervical Ripening Agents: Cytotec @ Datetime: 10/10/2020 08:24 Vital Sign Comments: Admission VS done @ 0742: T - 36.8, RR 20, HR 87, SpO2 100%, BP 118/80
== END 2020-10-13 16:24 | disposition home or self-care (01) ==
LOC: WFO 14:26 → FBP 14:27 → WFO 16:24
PROVIDERS: ATTEND Advanced Practice Midwife
DX: Z53.9 Procedure and treatment not carried out, unspecified reason (principal)

== ENCOUNTER 2023-08-22 10:27 | Emergency (ER) | payer OTHER ==
[2023-08-22 12:50] LABS: BASOPHILS % (AUTO) 0.3 %; EOSINOPHILS # (AUTO) 0.1 10^3/uL (0.0-0.7); EOSINOPHILS % (AUTO) 1.9 %; HCT - HEMATOCRIT 40.7 % (37.0-47.0); HGB - HEMOGLOBIN 13.3 g/dL (12.0-16.0); LYMPHOCYTES % (AUTO) 26.9 %; MEAN CORPUSCULAR HEMOGLOBIN 27.1 pg (27.0-31.0); MEAN CORPUSCULAR HGB CONC 32.7 g/dL (32.0-36.0); MEAN CORPUSCULAR VOLUME 82.9 fL (81.0-99.0); MEAN PLATELET VOLUME 9.6 fL (7.9-10.8); MONOCYTES # (AUTO) 0.4 10^3/uL (0.0-1.0); MONOCYTES % (AUTO) 5.7 %; NEUTROPHILS # (AUTO) 4.8 10^3/uL (1.5-6.6); NEUTROPHILS % (AUTO) 64.9 %; PLT - PLATELET COUNT 370 10^3/uL (130-450); RED BLOOD COUNT 4.91 10^6/uL (4.20-5.40); RED CELL DISTRIBUTION WIDTH 12.4 % (12.0-15.0); WHITE BLOOD COUNT 7.4 x10^3/uL (4.8-10.8)
[2023-08-22] MEDS: SODIUM CHLORIDE 0.9% 1,000 ML IV STA (13:00)
[2023-08-22 13:01] LABS: ALBUMIN 4.3 g/dL (3.2-5.5); ALBUMIN/GLOBULIN RATIO 1.4 (1.0-2.2); BILIRUBIN,TOTAL 0.4 mg/dL (0.2-1.0); CALCIUM 9.1 mg/dL (8.5-10.3); CREATININE 0.7 mg/dL (0.6-1.3); POTASSIUM 3.6 mmol/L (3.5-4.5); TOTAL PROTEIN 7.3 g/dL (6.4-8.9)
--- NOTE | 2023-08-22 13:09 | ED Physician Documentation ---
History of Present Illness - Stated complaint Stated Complaint: SYNCOPE - Chief complaint Chief Complaint: Neuro - History obtained from History obtained from: Patient - Additonal information Additional information: The patient comes to the emergency department chief complaint of fainting episode. She states that she was at work and ready to get on the plane when she began to feel dizzy. She states that she started to feel as though she was "disconnected" and almost as though she was "blacking out". She did not actually fall to the ground and she could hear people trying to talk to her and get her attention. She told him she was not feeling well and then began to completely lose consciousness. She states that bystanders later told her they caught her and when she woke up, they had taken her into the record changer and she was sitting down. The patient states that she does not feel that she was injured in any way. She does not think she was unconscious for very long at all. She notes that she was just started on 3 new medications including prazosin and sertraline. She states that she has a history of anxiety and that she felt that she was having a panic attack at the time of the feeling dizzy. She was breathing hard but denies any chest pain. She states that her body began to feel numb at the same time. The patient states that now she actually feels fairly normal. She denies any palpitations or heart pounding at any time. She is otherwise healthy, she states, and has never had this happen before. She is not sure if she has been drinking enough water lately and states she has not really been sleeping very well. She has not felt as though she was ill with anything. No other complaints at this time. PD PAST MEDICAL HISTORY - Past Medical History Past Medical History: No Cardiovascular: None Respiratory: None - Past Surgical History Past Surgical History: No - Allergies Allergies/Adverse Reactions: Allergies Allergy/AdvReac Type Severity Reaction Status Date / Time shellfish derived Allergy Itching Verified 08/22/23 10:44 strawberry Allergy Edema Verified 08/22/23 10:44 - Social History Does the pt smoke?: No Smoking Status: Never smoker Does the pt drink ETOH?: No Does the pt have substance abuse?: No - Immunizations Immunizations are current?: Yes - POLST Patient has POLST: No PD ED PE NORMAL - Vitals Vital signs reviewed: Yes - General General: Alert and oriented X 3, No acute distress - HEENT HEENT: Atraumatic, PERRL, EOMI, Moist mucous membranes - Neck Neck: Supple, no meningeal sign - Cardiac Cardiac: RRR, No murmur - Respiratory Respiratory: No respiratory distress, Clear bilaterally - Abdomen Abdomen: Soft, Non tender, Non distended - Derm Derm: Normal color, Warm and dry, No rash - Extremities Extremities: No deformity, No edema, No calf tenderness / cord - Neuro Neuro: Alert and oriented X 3 - Psych Psych: Normal mood, Normal affect Results - Vitals Vitals: Oxygen O2 Source Room air - EKG (time done) 1327 EKG releavant findings:: EKG personally interpreted by author of this note. Relevant findings are: Rate: Rate (enter#) (29) Rhythm: NSR [place]: Normal Intervals: Prolonged MI (borderline) QRS: Normal Ischemia: Normal ST segments Compare to prior EKG: Old EKG unavailable Computer interpretation: Agree with computer - Labs Labs: Laboratory Tests 08/22/23 08/22/23 08/22/23 12:40 12:40 12:40 WBC 7.4 RBC 4.91 Hgb 13.3 Hct 40.7 MCV 82.9 MCH 27.1 MCHC 32.7 RDW 12.4 Plt Count 370 MPV 9.6 Neut # (Auto) 4.8 Lymph # (Auto) 2.0 [place] # (Auto) 0.4 Eos # (Auto) 0.1 Baso # (Auto) 0.0 Absolute Nucleated RBC 0.00 Nucleated RBC % 0.0 Sodium 134 L Potassium 3.6 Chloride 103 Carbon Dioxide 24 Anion Gap 7.0 BUN 12 Creatinine 0.7 Estimated GFR (MDRD) 97 Glucose 94 Calcium 9.1 Total Bilirubin 0.4 AST 15 ALT 18 Alkaline Phosphatase 67 Total Protein 7.3 Albumin 4.3 Globulin 3.0 Albumin/Globulin Ratio 1.4 Lipase 17 Serum HCG, Qual NEGATIVE PD Medical Decision Making - ED course Complexity details: reviewed results, re-evaluated patient, considered differential, d/w patient ED course: The patient was worked up with laboratory studies, EKG, and treated with IV fluids in the emergency department. She was hemodynamically stable here and had no complaints. Work-up was negative, and I have discussed with the pt that it is important that she stays hydrated and gets rest. I am not sure what caused her episode today, but we have discussed the need for follow-up to discuss event monitor, should sx recur. We have discussed the usual indications for return. Departure - Departure Disposition: 01 Home, Self Care Clinical Impression: Syncope Qualifiers: Syncope type: unspecified Qualified Code(s): R55 - Syncope and collapse Adverse effects of medication Qualifiers: Encounter type: initial encounter Qualified Code(s): T50.905A - Adverse effect of unspecified drugs, medicaments and biological substances, initial encounter Condition: Stable Instructions: ED Dizziness [facility] Comments: Your laboratory studies look great as does your EKG. It is not clear exactly what caused you to feel faint today. It is possible that it is one of your new medications, and it could either be the sertraline or the prazosin. Prazosin does have some blood pressure effect, and so this could potentially cause dizziness and fainting. Sertraline can also have some general side effects that may cause you to feel generally unwell. You should talk to your doctor about whether these medications are a good choice for you. It is also possible that you were somewhat dehydrated, Combined with not sleeping well or other contributing factors. There is no evidence of a dangerous heart rhythm or any other emergent condition causing your fainting. Is important that you follow-up with your primary doctor about this and determine whether further investigation this is necessary. Please be sure you are drinking 8 to 10 cups of water every day and getting good rest as best as possible. Forms: PCP List Discharge Date/Time: 08/22/23 14:04
[2023-08-22 13:44] VITALS: BP 116/70; O2SAT 100
[2023-08-22 13:52] LABS: HCG,QUALITATIVE BLOOD NEGATIVE
== END 2023-08-22 14:04 | disposition home or self-care (01) ==
LOC: EDUNIT# → ED 10:27
DX: R55 Syncope and collapse (principal); T50.905A Adverse effect of unspecified drugs, medicaments and biological substances, initial encounter; F41.9 Anxiety disorder, unspecified; Z79.899 Other long term (current) drug therapy
CPT/HCPCS: 36415; 80053; 83690; 84703; 85025; 93005; 96360; 99284